=== PATIENT | male | born 1995 | race Caucasian/White ===

== ENCOUNTER 2024-11-24 10:45 | Outpatient (CLI) | payer OTHER ==
--- NOTE | 2024-11-25 14:24 | RADIOLOGY REPORT ---
PROCEDURE: MRI thoracic spine without contrast. INDICATION: SPONDYLOLYSIS, THORACOLUMBAR REGION COMPARISON: None TECHNIQUE: MRI thoracic spine without intravenous contrast utilizing multiplanar, multisequence tech nique. FINDINGS: Slightly motion degraded study. Images are still of diagnostic value. The marrow signal is homogenous. The vertebral body heights are maintained. Alignment of the thoracic spine is preserved. Intervertebral disc spaces are maintained in height and signal characteristics. There is no disc herniation in the thoracic spine. No significant canal or neural foraminal stenosis in the thoracic spine. The thoracic spinal cord is normal in caliber and signal characteristics. Other: None. Impression: No acute abnormality in the thoracic spine. HS:Y
== END 2024-11-24 23:59 | disposition home or self-care (01) ==
LOC: MRI02 10:45
PROVIDERS: ATTEND Anesthesiology Pain Medicine
DX: M51.369 Other intervertebral disc degeneration, lumbar region without mention of lumbar back pain or lower extremity pain (principal)
CPT/HCPCS: 72146; 73721

== ENCOUNTER 2024-11-24 10:47 | Outpatient (CLI) | payer OTHER ==
--- NOTE | 2024-11-24 11:48 | RADIOLOGY REPORT ---
CLINICAL INDICATION: Other intervertebral disc degeneration, lumbar region TECHNIQUE: AP and frogleg lateral views of the pelvis were performed. DI HIP BILATERAL 3-4 VIEWS Comparison: None FINDINGS/IMPRESSION: 1. No acute fracture of the pelvis or hips. 2. Minimal degenerative changes of the right hip with small marginal osteophytes present, without sig nificant joint space narrowing. 3. Lumbosacral transitional vertebrae incidentally noted. 4. Surgical clip present in the right lower quadrant.
--- NOTE | 2024-11-24 11:52 | RADIOLOGY REPORT ---
INDICATION: Other intervertebral disc degeneration, lumbar region COMPARISON: None TECHNIQUE: 3 views of the lumbar spine were obtained. FINDINGS: The lumbar vertebral alignment is normal. The intervertebral disc spaces are well-maintained. No significant facet arthropathy is noted. No acute fracture, vertebral compression deformity or aggressive osseous lesions. The paravertebral soft tissues are grossly unremarkable. IMPRESSION: No acute fracture or subluxation.
--- NOTE | 2024-11-25 14:26 | RADIOLOGY REPORT ---
CLINICAL INDICATION: OTHER INTVRT DISC DEGEN, LUM RGN WITH DISCOG BACK PAIN ONLY COMPARISON: DI HIP BILATERAL 3-4 VIEWS on DOS: 11/24/24 TECHNIQUE: Multiplanar, multi-sequence MRI of the right hip was performed without intravenous contrast. Contralateral hip is included on large [id number] images and grossly unremarkable Contrast: None INTERPRETATION: Joint space: There is no effusion. No synovitis. Bones and articular cartilage: There is no fracture, bone marrow edema or avascular necrosis. The al ignment is normal. There is no focal articular cartilage defect. Tendons and and bursae: There is no tendon abnormality. There is no evidence of bursitis. Acetabular labrum: No labral tear is identified. IMPRESSION: 1. Normal MRI of the right hip without intravenous contrast. HS:Y
== END 2024-11-24 23:59 | disposition home or self-care (01) ==
LOC: MRI02 10:47
PROVIDERS: ATTEND Specialist
DX: M51.360 Other intervertebral disc degeneration, lumbar region with discogenic back pain only (principal)
CPT/HCPCS: 72110; 73522